=== PATIENT | female | born 1935 ===

== ENCOUNTER 2022-04-06 07:30 | Observation (INO) ==
[~2022-04-06 07:30] MED LIST: Buffered Lidocaine 1% SYRIN 1 ml INTRADERM ONE
[2022-04-06] MEDS ORDERED: ceFAZolin 2 GM in NS PREMIX 2 GM/100 ML BAG IVPB ONE (10:19)
[2022-04-06] MEDS ORDERED: Lidocaine 2% PF 5 ML VIAL ONE (10:33)
[2022-04-06] MEDS ORDERED: Propofol 10 MG/ML 20 ML BTL ONE (10:33)
[2022-04-06] MEDS ORDERED: Midazolam 2 mg/2 ml VIAL 1 mg/ml 2 ml VIAL (2 mg) ONE (10:33)
[2022-04-06] MEDS: Lactated Ringers 1000 ml BAG 1,000 ML IV SCH (10:42)
[2022-04-06] MEDS ORDERED: Phenylephrine IV 10 MG/ML 1 ml VIAL ONE (10:49)
[2022-04-06] MEDS ORDERED: Famotidine IV 10 MG/ML 2 ml VIAL (20 mg) IV SLOW PU ONE (10:54)
[2022-04-06] MEDS ORDERED: Famotidine IV 10 MG/ML 2 ml VIAL (20 mg) ONE (10:54)
[2022-04-06] MEDS ORDERED: fentaNYL 100 mcg/2 ml 50 MCG/ML VIAL ONE (11:12)
[2022-04-06] MEDS ORDERED: Rocuronium 50 mg VIAL 10 mg/ml 5 ml VIAL (50 mg) ONE (11:14)
[2022-04-06] MEDS ORDERED: Clindamycin 900 MG/D5W BAG 900 MG/50 ML BAG IVPB ONE (11:24)
[2022-04-06] MEDS ORDERED: Labetalol IV 5 MG/ML 20 ml VIAL ONE (11:30)
[2022-04-06] MEDS ORDERED: HYDROmorphone 0.5 MG/0.5 ML SYRINGE ONE (12:32)
[2022-04-06] MEDS ORDERED: Ondansetron ODT 4 mg TAB 4 MG TAB PO PRN (12:38)
[2022-04-06] MEDS ORDERED: Lactulose 30 ml UDC PO PRN (12:38)
[2022-04-06] MEDS ORDERED: Magnesium Hydroxide LIQ 30 ML UDC PO PRN (12:38)
[2022-04-06] MEDS ORDERED: Morphine 2 MG/ML SYRINGE IV PRN (12:38)
[2022-04-06] MEDS ORDERED: Ondansetron 4 mg VIAL 2 MG/ML 2 ml VIAL IV PRN ×2 (12:38→12:44)
[2022-04-06] MEDS ORDERED: fentaNYL 100 mcg/2 ml 50 MCG/ML VIAL IV PRN (12:44)
[2022-04-06] MEDS ORDERED: Naloxone 0.4 mg VIAL 0.4 mg/ml 1 ml VIAL IV PRN (12:44)
[2022-04-06] MEDS ORDERED: HYDROmorphone 1 MG/1 ML SYRINGE IV PRN (12:44)
[2022-04-06] MEDS ORDERED: Lactated Ringers 1000 ml BAG 1,000 ML IV SCH (13:00)
[2022-04-06] MEDS ORDERED: ROPIVACAINE 5 MG/ML 30 ML BTL (0.5%) ONE (13:29)
[2022-04-06 17:14] LABS: Hepatitis B Surface Antigen Nonreactive (Nonreactive)
[2022-04-06 17:31] LABS: Hepatitis C Antibody Negative (Negative)
[2022-04-06 17:41] LABS: HIV 4th Generation Nonreactive (Nonreactive)
[2022-04-06] MEDS: Clindamycin 600 MG/D5W BAG 600 MG/50 ML BAG IV SCH (21:38)
[2022-04-06] MEDS: Magnesium Hydroxide LIQ 30 ML UDC PO SCH (21:44)
[2022-04-06] MEDS: NF: Ursodiol 250 mg TAB (NF) PO SCH (21:45)
[2022-04-07] MEDS: Lactated Ringers 1000 ml BAG 1,000 ML IV SCH (03:35)
[2022-04-07] MEDS: Clindamycin 600 MG/D5W BAG 600 MG/50 ML BAG IV SCH ×2 (05:00→12:52)
[2022-04-07 06:52] LABS: Hematocrit 32 % (35-47); Hemoglobin 10.4 g/dL (12.0-16.0); Mean Platelet Volume 8.6 fL (7.4-10.4); Platelet Count 163 10^3/uL (150-450)
[2022-04-07 07:10] LABS: Calcium 8.4 mg/dL (8.6-10.3); Creatinine, Serum 0.7 mg/dL (0.51-0.95); Potassium 4.2 mmol/L (3.5-5.0); eGFR CKD-EPI 83.1 (>60)
[2022-04-07] MEDS: Vitamin THERAPEUTIC TAB PO SCH (09:56)
[2022-04-07] MEDS: Magnesium Hydroxide LIQ 30 ML UDC PO SCH ×2 (11:50→21:05)
[2022-04-07] MEDS: NF: Ursodiol 250 mg TAB (NF) PO SCH ×2 (11:51→21:10)
[2022-04-08 07:03] LABS: Hematocrit 30 % (35-47); Hemoglobin 9.8 g/dL (12.0-16.0); Mean Platelet Volume 8.5 fL (7.4-10.4); Platelet Count 158 10^3/uL (150-450)
[2022-04-08 07:37] VITALS: BP 110/59
[2022-04-08] MEDS: Vitamin THERAPEUTIC TAB PO SCH (09:07)
[2022-04-08] MEDS: Magnesium Hydroxide LIQ 30 ML UDC PO SCH (09:07)
[2022-04-08] MEDS: NF: Ursodiol 250 mg TAB (NF) PO SCH (09:08)
== END 2022-04-08 10:01 ==
LOC: INTOOBSV 10:04 → AA 10:04 → SSU 16:36
PROVIDERS: ADMIT Orthopaedic Surgery Adult Reconstructive Orthopaedic Surgery; ATTEND Orthopaedic Surgery Adult Reconstructive Orthopaedic Surgery

== ENCOUNTER 2023-01-18 08:46 | Inpatient (IN) ==
[~2023-01-18 08:46] MED LIST changes: +Acetaminophen IV 1 GM/100ML 1,000 MG/100 ML BAG IV ONE; +Dexamethasone IV 4 MG/ML VIAL 1 ml VIAL ONE; +Etomidate 20 mg/10 ml 2 MG/ML 10 ml VIAL ONE; +Lactated Ringers 1000 ml BAG 1,000 ML IV SCH; +Lidocaine 2% PF 5 ML VIAL ONE; +Ondansetron 4 mg VIAL 2 MG/ML 2 ml VIAL ONE; +Phenylephrine IV 10 MG/ML 1 ml VIAL ONE; +Propofol 10 MG/ML 20 ML BTL ONE; +Rocuronium 50 mg VIAL 10 mg/ml 5 ml VIAL (50 mg) ONE; +Sevoflurane BOTTLE ONE; +fentaNYL 100 mcg/2 ml 50 MCG/ML VIAL ONE
[2023-01-18] MEDS ORDERED: ROPIVACAINE 5 MG/ML 30 ML BTL (0.5%) ONE ×2 (09:34→10:53)
[2023-01-18] MEDS ORDERED: Midazolam 5 mg/5 ml VIAL 1 mg/ml 5 ml VIAL (5 mg) ONE (09:34)
[2023-01-18] MEDS ORDERED: fentaNYL 100 mcg/2 ml 50 MCG/ML VIAL ONE ×2 (09:34→14:57)
[2023-01-18] MEDS ORDERED: ceFAZolin 2 GM in NS PREMIX 2 GM/100 ML BAG IVPB ONE (09:35)
[2023-01-18] MEDS ORDERED: Tranexamic Acid 1 GM/100ML BAG 2,000 MG/200 ML BAG IV ONE (09:36)
[2023-01-18 09:50] LABS: Rapid COVID-19 Molecular Undetected (Undetected)
[2023-01-18] MEDS ORDERED: Famotidine IV 10 MG/ML 2 ml VIAL (20 mg) IV SLOW PU ONE (10:20)
[2023-01-18] MEDS ORDERED: Famotidine IV 10 MG/ML 2 ml VIAL (20 mg) ONE (10:46)
[2023-01-18] MEDS ORDERED: HYDROmorphone 1 MG/1 ML SYRINGE IV PRN (11:55)
[2023-01-18] MEDS ORDERED: Naloxone 0.4 mg VIAL 0.4 mg/ml 1 ml VIAL IV PRN (11:55)
[2023-01-18] MEDS ORDERED: Morphine 2 MG/ML SYRINGE IV PRN (14:31)
[2023-01-18] MEDS ORDERED: Magnesium Hydroxide LIQ 30 ML UDC PO PRN (14:31)
[2023-01-18] MEDS ORDERED: Lactulose 30 ml UDC PO PRN (14:31)
[2023-01-18] MEDS ORDERED: Ondansetron 4 mg VIAL 2 MG/ML 2 ml VIAL IV PRN (14:31)
[2023-01-18] MEDS ORDERED: Ondansetron ODT 4 mg TAB 4 MG TAB PO PRN (14:31)
[2023-01-18] MEDS: fentaNYL 100 mcg/2 ml 50 MCG/ML VIAL IV PRN ×2 (14:58→15:20)
[2023-01-18] MEDS ORDERED: Lactated Ringers 1000 ml BAG 1,000 ML IV SCH (15:00)
[2023-01-18] MEDS ORDERED: Propofol 10 MG/ML 20 ML BTL ONE (17:10)
[2023-01-18] MEDS: Magnesium Hydroxide LIQ 30 ML UDC PO SCH (20:17)
[2023-01-18] MEDS: ceFAZolin 1 GM in Dextrose 1 GM/50 ML BAG IV SCH (20:19)
[2023-01-18] MEDS: URSODIOL 250 MG PO SCH (20:23)
[2023-01-19] MEDS: ceFAZolin 1 GM in Dextrose 1 GM/50 ML BAG IV SCH ×2 (03:49→14:01)
[2023-01-19 06:57] LABS: Hematocrit 32.1 % (35-45); Hemoglobin 10.9 g/dL (11.5-14.3); Mean Platelet Volume 8.1 fL (7.5-11.2); Platelet Count 183 10^3/uL (150-450)
[2023-01-19 07:59] LABS: Calcium 8.5 mg/dL (8.6-10.3); Creatinine, Serum 0.84 mg/dL (0.51-0.95); Potassium 4.1 mmol/L (3.5-5.0); eGFR CKD-EPI 66.4 (>60)
[2023-01-19] MEDS: Vitamin THERAPEUTIC TAB PO SCH (08:52)
[2023-01-19] MEDS: Magnesium Hydroxide LIQ 30 ML UDC PO SCH ×2 (08:52→20:18)
[2023-01-19] MEDS: URSODIOL 250 MG PO SCH ×2 (08:54→20:44)
[2023-01-19] MEDS ORDERED: Lactated Ringers 1000 ml BAG 1,000 ML IV ONE ×2 (11:04→15:14)
[2023-01-19] MEDS: Lactated Ringers 1000 ml BAG 1,000 ML IV SCH (20:10)
[2023-01-20] MEDS: Lactated Ringers 1000 ml BAG 1,000 ML IV SCH (04:13)
[2023-01-20 07:06] LABS: ABS Eosinophils 0.2 10^3/uL (0.0-0.5); ABS Lymphocytes 1.1 10^3/uL (1.0-4.8); ABS Monocytes 0.8 10^3/uL (0.0-0.9); ABS Neutrophils 7.1 10^3/uL (1.5-7.6); Eosinophil % 2.5 %; Hematocrit 28.1 % (35-45); Hemoglobin 9.6 g/dL (11.5-14.3); Lymphocyte % 12.2 %; Mean Corpuscular Hemoglobin 32.1 pg (27-33); Mean Corpuscular Hgb Conc 34.2 g/dL (31-36); Mean Corpuscular Volume 93.7 fL (80-97); Mean Platelet Volume 7.8 fL (7.5-11.2); Platelet Count 167 10^3/uL (150-450); White Blood Count 9.3 10^3/uL (3.8-11.8)
[2023-01-20 07:36] LABS: Calcium 7.9 mg/dL (8.6-10.3); Creatinine, Serum 0.73 mg/dL (0.51-0.95); Magnesium 2.5 mg/dL (1.9-2.7); Potassium 4.5 mmol/L (3.5-5.0); eGFR CKD-EPI 78.6 (>60)
[2023-01-20] MEDS: URSODIOL 250 MG PO SCH ×2 (08:01→22:26)
[2023-01-20] MEDS: Vitamin THERAPEUTIC TAB PO SCH (08:13)
[2023-01-20] MEDS: Magnesium Hydroxide LIQ 30 ML UDC PO SCH ×2 (08:16→22:26)
[2023-01-21] MEDS: Vitamin THERAPEUTIC TAB PO SCH (11:24)
[2023-01-21] MEDS: Magnesium Hydroxide LIQ 30 ML UDC PO SCH (11:26)
[2023-01-21] MEDS: URSODIOL 250 MG PO SCH (11:31)
[2023-01-21 12:06] VITALS: BP 120/70
== END 2023-01-21 15:00 | disposition home or self-care (01) | DRG 470 ==
LOC: INTOOBSV 08:46 → AA 08:46 → SSU 14:31
PROVIDERS: ADMIT Orthopaedic Surgery Adult Reconstructive Orthopaedic Surgery; ATTEND Orthopaedic Surgery Adult Reconstructive Orthopaedic Surgery